=== PATIENT | female | born 1990 | race Caucasian/White ===

== ENCOUNTER 2021-04-12 18:22 | Emergency (ER) | payer SELFPAY ==
[~2021-04-12] VITALS: Ht 152.4 cm; Wt 100.0 kg
[~2021-04-12 18:22] MED LIST: CEPHALEXIN500 M1 PO; DOXYCYCLINE 10100 MG PO; DOXYCYCLINE100 M2 PO; FLINTSTONES1 CTB PO; LORTAB 5/500 501 TAB PO; MAGIC MOUTHWASH1 M2 PO; NO HOME MEDICATIONS; NORCO 325 MG-51 TAB PO; PHENERGAN 25 TA25 MG PO; PRENATAL VITAMI1 TA5 PO; ULTRAM 50MG TAB50 MG PO; VITAMINS
[2021-04-12 18:46] VITALS: TEMP 98.4
[2021-04-12] MEDS ORDERED: ZOFRAN ODT4 MG PO (19:34)
[2021-04-12 19:45] VITALS: BP 120/61; PULSE 88
== END 2021-04-12 19:54 | disposition home or self-care (01) ==
LOC: COL.ER 18:22
DX: U07.1 COVID-19 (principal)